=== PATIENT | female | born 1995 | race Caucasian/White ===

== ENCOUNTER → 2020-10-14 13:08 | Outpatient (CLI) | payer OTHER, SELFPAY ==
--- NOTE | ~2020-10-14 | US_ITS ---
EXAMINATION: US OB transvaginal DATE: 10/14/2020 13:48 INDICATION: Gestational dates. Hypothyroidism. Hyperemesis. TECHNIQUE: Real-time transvaginal obstetric ultrasound. FINDINGS: No prior studies for comparison. The uterus measures 12.2 x 6.9 x 6.8 cm. There is an intrauterine gestational sac, with pole id entified. The crown-rump length measured 2.23 cm corresponding to 9 week 0 day gestation. hear t rate is 169 bpm. There are 2 separate areas of subchorionic hemorrhage measuring 1.6 x 1.5 x 1 cm a nd 1.3 x 1.3 x 1 cm respectively. IMPRESSION: 1. SL IUP with an EGA of 9 weeks, 0 days (EDC by current ultrasound of 05/19/2021). 2: Subchorionic hemorrhages. Reviewed, dictated and finalized at location A. PROCESSING OPERATOR IMPRESSION: 1. SL IUP with an EGA of 9 weeks, 0 days (EDC by current ultrasound of ). 2: Subchorionic hemorrhages.
== END ==
PROVIDERS: Visit Provider Obstetrics & Gynecology
DX: Z36.87 Encounter for antenatal screening for uncertain dates (principal); Z3A.09 9 weeks gestation of pregnancy; O36.8911 Maternal care for other specified fetal problems, first trimester, fetus 1
CPT/HCPCS: 76817

== ENCOUNTER → 2020-10-29 09:48 | Outpatient (CLI) | payer OTHER, SELFPAY ==
--- NOTE | ~2020-10-29 | US_ITS ---
EXAMINATION: US OB limited EXAM DATE: 10/29/2020 10:19 INDICATION: Subchorionic hematoma 1st trimester. TECHNIQUE: Pelvic obstetrical transabdominal sonogram was performed by a technologist. There are mu ltiple grayscale and Doppler images available for interpretation. Comparison is made to prior examina tion from 10/14/2020. FINDINGS: Uterus measures 12.5 x 7.4 x 9.0 cm. There is intrauterine gestation again identified, hear t rate confirmed at 150 bpm. Previously seen subchorionic hypoechogenic region is no longer identifie d. The ovaries were not specifically identified. IMPRESSION: Live intrauterine gestation without evidence of subchorionic hematoma. Reviewed, dictated and finalized at location A. RAPHY TEACHER IMPRESSION: Live intrauterine gestation without evidence of subchorionic hemat julio cesar.
== END ==
PROVIDERS: Visit Provider Obstetrics & Gynecology
DX: O36.8910 Maternal care for other specified fetal problems, first trimester, not applicable or unspecified (principal); Z3A.00 Weeks of gestation of pregnancy not specified
CPT/HCPCS: 76815

== ENCOUNTER → 2020-12-20 10:24 | Outpatient (CLI) | payer OTHER, SELFPAY ==
--- NOTE | ~2020-12-20 | US_ITS ---
EXAMINATION: US OB >= 14 weeks Fetus DATE: 12/20/2020 10:59 INDICATION: Pelvic pain TECHNIQUE: Multiple obstetric sonographic images performed. FINDINGS: survey There is a single living fetus in vertex presentation. The placenta is anterior without placenta pre via. Placental margin is 2.5 cm to the cervix. Amniotic fluid volume is normal. cardiac activity and movement is noted with a heart rate of 143 beats per minute. The following anatomy was identified as normal: 4 chamber heart (left ventricular outflow tract not well visualized) 3 vessel cord cord insertion kidneys urinary bladder stomach spine diaphragm ventricles cisterna magna cerebellum The following biometric data were obtained: BPD: 42mm corresponds to gestational age 18 weeks 5 days. Head circumference: 162 mm corresponds to gestational age 19 weeks 0 days. Abdominal circumference: 134 mm corresponds to gestational age 18 weeks 6 days. Femur length: 27 mm corresponds to gestational age 18 weeks 0 days. Head circumference to abdominal circumference ratio: 1.21 (normal range for expected gestational age is 1.09-1.26). Estimated weight: 246 grams +/- 37 grams using Hadlock method. IMPRESSION: 1: Single living intrauterine with an estimated gestational age of 18weeks 4days by initial ultrasound measurements, with an EDC of 05/19/2021 in breech presentation. 2. Normal survey. Limited visualization of the left ventricular outflow tract. Recommend atten tion to this structure on subsequent study. 3: Low-lying anterior placenta measuring 2.5 cm to the cervix. Reviewed, dictated and finalized at location A. IMPRESSION: 1: Single living intrauterine with an estimated gestational age of 18 weeks 4days by initial ultrasound measurements, with an EDC of 05/19/2021 in karen ech presentation. 2. Normal survey. Limited visualization of the left ventricular outflow tract. Recommend attention to this structure on subsequent study. 3: Low-lying anterior placenta measuring 2.5 cm to the cervix.
== END ==
PROVIDERS: Visit Provider Obstetrics & Gynecology
DX: Z36.9 Encounter for antenatal screening, unspecified (principal); O44.42 Low lying placenta NOS or without hemorrhage, second trimester; Z3A.18 18 weeks gestation of pregnancy
CPT/HCPCS: 76805

== ENCOUNTER → 2021-01-24 10:25 | Outpatient (CLI) | payer OTHER, SELFPAY ==
--- NOTE | ~2021-01-24 | US_ITS ---
EXAMINATION: US OB follow up DATE: 01/24/2021 10:49 INDICATION: Follow-up incomplete prior anatomic survey. TECHNIQUE: Real-time ultrasound of the pelvis was performed. The interpreting radiologist was not pre sent for the study. COMPARISON: 12/20/2020 FINDINGS: There is a single living fetus in vertex presentation. The placenta is anterior. heart rate is 149 beats per minute (bpm). The amniotic fluid volume is subjectively normal. The heart is nor mal with normal four-chamber heart, left ventricular outflow and right ventricular outflow views. IMPRESSION: 1. Single living fetus in vertex presentation with heart rate of 149 bpm. 2. Normal heart views. Reviewed, dictated and finalized at location A.
== END ==
PROVIDERS: Visit Provider Obstetrics & Gynecology
DX: Z36.89 Encounter for other specified antenatal screening (principal)
CPT/HCPCS: 76816

== ENCOUNTER → 2021-03-18 12:51 | Outpatient (CLI) | payer OTHER, SELFPAY ==
--- NOTE | ~2021-03-18 | US_ITS ---
EXAMINATION: US OB follow up EXAM DATE: 03/18/2021 13:13 INDICATION: Size greater than dates. 3rd trimester. TECHNIQUE: Pelvic obstetrical transabdominal sonogram was performed by a technologist. There are mu ltiple grayscale and Doppler images available for interpretation. Comparison is made to prior examina tion from 01/24/2021. FINDINGS: There is a single fetus identified in vertex presentation with a heart rate of 129 beats pe r minute. The placenta is located in the anterior position. There is no sonographic evidence of retr oplacental hemorrhage identified. The amniotic fluid index is 16.1 centimeters, which is normal. BIOMETRIC DATA: Biparietal diameter (BPD): 8.5 cm ----------------> 34 weeks 1 day. Head circumference (HC): 30.0 cm ----------------> 33 weeks 2 days. Abdominal circumference (AC): 28.7 cm ----------> 32 weeks 5 days. Femur length (FL): 5.7 cm --------------------------> 30 weeks 0 days. These measurements are discordant, with a FL/AC and FL/BPD 2 standard deviations below expected. HC/ AC ratio is 1.05 (The 5th -- 95th percentile range is 0.96-1.12. Estimated weight is 1898 g +/- 285 g. This is the 70th percentile when the currently reported clinical gestation age 31 weeks 1 day, clinical estimated date of delivery (SOLO-OPE) 05/19/2021 is use d. estimated gestational age based on measurements from this exam is 32 weeks 4 days, with an e stimated date of delivery (SOLO-AUA) 05/09. IMPRESSION: 1. Single fetus in vertex presentation with heart rate 129 beats per minute. 2. Estimated weight of 1898 grams, 70th percentile using the currently reported clinical gesta tion age of 31 weeks 1 day, SOLO(OPE) 05/19/2021. 3. Discordant FL/BPD and FL/HC ratios. Reviewed, dictated and finalized at location A. IMPRESSION: 1. Single fetus in vertex presentation with heart rate 129 beats per minute. 2. Estimated weight of 1898 grams, 70th percentile using the currently r eported clinical gestation age of 31 weeks 1 day, SOLO(OPE) 05/19/2021. 3. Discordant FL/BPD and FL/HC ratios.
== END ==
PROVIDERS: Visit Provider Obstetrics & Gynecology Gynecology
DX: O36.63X0 Maternal care for excessive fetal growth, third trimester, not applicable or unspecified (principal); Z3A.31 31 weeks gestation of pregnancy
CPT/HCPCS: 76816

== ENCOUNTER 2021-04-27 01:32 | Observation (INO) | payer OTHER, SELFPAY ==
--- NOTE | 2021-04-27 01:32 | LDADM ---
This patient, Sol Ferguson, was admitted to Labor/Delivery/Recovery 106 on 04/27/21 at 01:32. Plans for labor, pain management and were discussed with patient. Patient/family oriented to hospital policies and general routines including ID bracelet, bed and alarms, visiting hours, pain management, procedures, bathroom and other care routines, personal items, smoking policy, room service/diet and guest tray routines, infant security routines, and visiting hours. Patient/Family are encouraged to report perceived risks to care and to ask questions if they do not understand what they are told or what they should do. See OBIX for further documentation.
[2021-04-27 01:44] VITALS: BP 116/76; PULSE 91
[2021-04-27 02:01] VITALS: BP 109/70; PULSE 84
[2021-04-27 02:15] VITALS: BMI 31.1
[2021-04-27 02:31] VITALS: BP 107/73; PULSE 89
[2021-04-27 02:41] LABS: Basophils Absolute Auto 0.1 K/mm3 (0.0-0.1); Basophils Percent Auto 0.5 % (0.2-1.2); Eosinophils Absolute Auto 0.1 K/mm3 (0-0.3); Eosinophils Percent Auto 0.5 % (0-4.4); Hematocrit 34.8 % (37.0-47.0); Hemoglobin 11.2 g/dL (12.0-15.0); Immature Granulocyte Absolute 0.26 K/mm3 (0.00-0.031); Immature Granulocyte Percent A 2.4 % (0-0.5); Lymphocytes Absolute Auto 1.92 K/mm3 (0.9-3.2); Lymphocytes Percent Auto 17.5 % (18.3-44.2); Mean Corpuscular HGB Conc 32.2 g/dl (32-36); Mean Corpuscular Hemoglobin 28.7 pg (26-34); Mean Corpuscular Volume 89.2 fl (80-100); Mean Platelet Volume 10.3 fl (7.4-10.4); Monocytes Absolute Auto 0.8 K/mm3 (0.1-0.6); Monocytes Percent Auto 7.1 % (2.6-8.5); Neutrophils Absolute Auto 7.9 K/mm3 (1.3-6.7); Platelet Count Result 138 k/mm3 (150-375); Red Cell Distribution Width 14.4 % (11.5-14.5)
[2021-04-27] MEDS: LACTATED RINGERS 1,000 ML 125 ML IV CONT (02:53)
[2021-04-27] MEDS: AMPICILLIN 2 GM/NS 100 ML 2 GM/100 ML BAG IVPB (02:54)
[2021-04-27 03:09] VITALS: RESP 18; TEMP 36.5
[2021-04-27 04:30] VITALS: BP 104/72; PULSE 80; RESP 16; TEMP 36.6
[2021-04-27 05:54] VITALS: BP 103/65; PULSE 81
[2021-04-28 09:57] LABS: Rapid Plasma Reagin Non-Reactive (NonReactive)
--- NOTE | 2021-05-08 07:33 | P.PNOB_ITS ---
OB - Triage/Final Diagnosis Visit Information Reason for evaluation: threatened labor Comments/Additional reasons for admission: I have assessed the risk for this patient, Sol Ferguson, and determined that she would benefit from observation care. Evaluation Laboratory results: Laboratory Tests 04/27/21 04/27/21 04/27/21 02:28 02:28 02:28 WBC 11.0 H RBC 3.90 L Hgb 11.2 L Hct 34.8 L MCV 89.2 MCH 28.7 MCHC 32.2 RDW 14.4 Plt Count 138 L MPV 10.3 Immature Gran % (Auto) 2.4 H Neut % (Auto) 72.0 Lymph % (Auto) 17.5 L [place] % (Auto) 7.1 Eos % (Auto) 0.5 Baso % (Auto) 0.5 Lymph # (Auto) 1.92 [place] # (Auto) 0.8 H Eos # (Auto) 0.1 Baso # (Auto) 0.1 Abs Immat Gran (auto) 0.26 H Absolute Neuts (auto) 7.9 H Absolute Nucleated RBC 0.0 Nucleated RBC % 0.0 RPR Non-reactive Blood Type A Positive Antibody Screen Negative
== END 2021-04-27 07:45 | disposition home or self-care (01) ==
PROVIDERS: Admitting Provider Obstetrics & Gynecology Gynecology; PCP Internal Medicine; Visit Provider Obstetrics & Gynecology Gynecology
DX: O47.03 False labor before 37 completed weeks of gestation, third trimester (principal); Z3A.36 36 weeks gestation of pregnancy
CPT/HCPCS: 36415; 85025; 86592; 86850; 86900; 86901; 96365; G0378; G0379; J0290; J7120

== ENCOUNTER 2021-05-12 06:46 | Inpatient (IN) | payer OTHER, SELFPAY ==
[2021-05-12] VITALS (82 sets, daily range): BP systolic 86–125; BP diastolic 60–91; PULSE 61–103; RESP 16–18; TEMP 35.9–36.9; O2SAT 97–100; BMI 31.7
[2021-05-12 07:31] LABS: Basophils Absolute Auto 0.1 K/mm3 (0.0-0.1); Basophils Percent Auto 0.6 % (0.2-1.2); Eosinophils Absolute Auto 0.1 K/mm3 (0-0.3); Eosinophils Percent Auto 0.6 % (0-4.4); Hematocrit 31.7 % (37.0-47.0); Immature Granulocyte Absolute 0.22 K/mm3 (0.00-0.031); Immature Granulocyte Percent A 2.7 % (0-0.5); Lymphocytes Percent Auto 17.3 % (18.3-44.2); Mean Corpuscular HGB Conc 31.5 g/dl (32-36); Mean Corpuscular Hemoglobin 27.9 pg (26-34); Mean Corpuscular Volume 88.5 fl (80-100); Mean Platelet Volume 10.2 fl (7.4-10.4); Monocytes Absolute Auto 0.6 K/mm3 (0.1-0.6); Monocytes Percent Auto 7.3 % (2.6-8.5); Neutrophils Absolute Auto 5.8 K/mm3 (1.3-6.7); Neutrophils Percent Auto 71.5 % (45.5-73.1); Platelet Count Result 145 k/mm3 (150-375); Red Blood Count 3.58 M/mm3 (4.2-5.4); Red Cell Distribution Width 13.9 % (11.5-14.5); White Blood Count 8.1 K/mm3 (4.5-10.0)
[2021-05-12] MEDS: LACTATED RINGERS 1,000 ML 125 ML IV CONT ×2 (07:35→10:06)
[2021-05-12] MEDS: OXYTOCIN 30 UNITS/NS 500 ML 30 UNITS/500 ML BAG IV CONT (07:37)
--- NOTE | 2021-05-12 08:01 | LDADM ---
This patient, Sol Ferguson, was admitted to Labor/Delivery/Recovery 108 on 05/12/21 at 06:46. Plans for labor, pain management and were discussed with patient. Patient/family oriented to hospital policies and general routines including ID bracelet, bed and alarms, visiting hours, pain management, procedures, bathroom and other care routines, personal items, smoking policy, room service/diet and guest tray routines, infant security routines, and visiting hours. Patient/Family are encouraged to report perceived risks to care and to ask questions if they do not understand what they are told or what they should do. See OBIX for further documentation.
--- NOTE | 2021-05-12 08:09 | WPDOBADMIT ---
Obstetrics - Admit Note Admission Note: record reviewed. No pertinent additions to the history and/or any subsequent changes in the physical findings that are not consistent with the expected course of the were found. Additions to the history and/or subsequent changes in the physical findings follow. Here for MIL. 4/80/-2 AROM with clear fluid. FHTs reactive
--- NOTE | 2021-05-12 08:46 | P.PNAN_ITS ---
Anes - Eval Pre Procedure Date/Time: 05/12/21 08:46 Pre Op Diagnosis: Induction of Labor Patient Data Age: 25 Gender: F Height: 1.7 m Weight: 92 kg Last Vital Signs Temp 36.9 C 05/12/21 08:06 Pulse 73 05/12/21 08:45 BP 110/76 05/12/21 08:45 Allergies Allergy/AdvReac Type Severity Reaction Status Date / Time iodine Allergy Rash Verified 04/22/21 15:37 Home Medications Medication Instructions Recorded Confirmed Type levothyroxine 275 mcg PO DAILY 04/22/21 04/22/21 History omeprazole 20 mg PO DAILY 04/22/21 04/22/21 History prenat.vits,estuardo,tum-[id number] 1 tablet PO DAILY 04/22/21 04/22/21 History sertraline [Zoloft] 100 mg PO DAILY 04/22/21 04/22/21 History Laboratory Tests 05/12/21 05/12/21 07:20 07:20 WBC 8.1 K/mm3 K/mm3 (4.5-10.0) RBC 3.58 M/mm3 L M/mm3 (4.2-5.4) Hgb 10.0 g/dL L g/dL (12.0-15.0) Hct 31.7 % L % (37.0-47.0) MCV 88.5 fl fl (80-100) MCH 27.9 pg pg (26-34) MCHC 31.5 g/dl L g/dl (32-36) RDW 13.9 % % (11.5-14.5) Plt Count 145 k/mm3 L k/mm3 (150-375) MPV 10.2 fl fl (7.4-10.4) Immature Gran % (Auto) 2.7 % H % (0-0.5) Neut % (Auto) 71.5 % % (45.5-73.1) Lymph % (Auto) 17.3 % L % (18.3-44.2) [place] % (Auto) 7.3 % % (2.6-8.5) Eos % (Auto) 0.6 % % (0-4.4) Baso % (Auto) 0.6 % % (0.2-1.2) Lymph # (Auto) 1.40 K/mm3 K/mm3 (0.9-3.2) [place] # (Auto) 0.6 K/mm3 K/mm3 (0.1-0.6) Eos # (Auto) 0.1 K/mm3 K/mm3 (0-0.3) Baso # (Auto) 0.1 K/mm3 K/mm3 (0.0-0.1) Abs Immat Gran (auto) 0.22 K/mm3 H K/mm3 (0.00-0.031) Absolute Neuts (auto) 5.8 K/mm3 K/mm3 (1.3-6.7) Absolute Nucleated RBC 0.0 K/mm3 K/mm3 (0.0-0.012) Nucleated RBC % 0.0 % % (0.0-0.2) RPR Pending Patient hx anesthesia problems: none Family hx anesthesia problems: none [facility] Family History Family History Father Hypertension Sibling Hypothyroidism Diabetes mellitus Grandparent Type 2 diabetes mellitus Social History Social History Smoking status: Never smoker Second hand tobacco smoke exposure: No Substance use: never Spiritual care concerns: No Exam Day of Procedure 05/12/21 08:46 Patient weight: normal Heart: regular rate and rhythm Lungs: normal air movement Airway: Mallampati scale class II Neurological: alert and oriented
[2021-05-12] MEDS: LACTATED RINGERS 1,000 ML 999 ML IV CONT (08:57)
--- NOTE | 2021-05-12 11:32 | PM.OBPRVD ---
OB - Delivery Note Procedure Delivery date: 05/12/21 Procedure: Procedures Operation Date: 05/13/21 12:00 <No data on this case meets the specified criteria> events: Labor Induction Induction method: AROM and per pitocin protocol Delivery monitor: external FHT and external uterine Route of delivery: Laceration Description: None Specimen: No Quantitative Blood Loss (ml): 50 Anesthesia type: Epidural Disposition: floor Baby Date of : 05/12/21 Weeks of gestation at delivery: 39 gender: Male presentation: vertex position: Right Occiput Anterior Placenta delivery description: Spontaneous cord vessel description: 3 Vessels score one minute: 9 score five minutes: 9
--- NOTE | 2021-05-12 11:33 | P.DS_ITS ---
DS: Admitting Diagnosis Discharge Date 05/14/21 Admitting Diagnosis induction of labor at 39 weeks DS: Discharge Diagnosis Discharge Diagnosis (1) (normal spontaneous vaginal delivery): Code(s): O80 - Encounter for full-term uncomplicated delivery Status: Acute (2) Encounter for sterilization: Code(s): Z30.2 - Encounter for sterilization Status: Acute OB - DS: Summary OB Procedures : Ultrasound OB Procedures Intrapartum: Spontaneous Vag Delivery OB Procedures: : P.P. tubal ligation Peripartum Data Infant Delivery Method: Natural Vaginal Laceration Description: None Procedures: Procedures Operation Date: 05/13/21 12:00 <No data on this case meets the specified criteria> complications: none Status at Discharge Functional status at discharge: independent ambulation Overall status at discharge: patient is progressing back to baseline Time Spent with Patient Time attestation: Total time spent providing and/or coordinating discharge services: Time spent: Less than 30 minutes DS: Data Data Completed and Pending Labs on day of discharge: Labs from last 24 hours 05/12/21 05/12/21 05/12/21 07:20 07:20 07:20 WBC 8.1 RBC 3.58 L Hgb 10.0 L Hct 31.7 L MCV 88.5 MCH 27.9 MCHC 31.5 L RDW 13.9 Plt Count 145 L MPV 10.2 Immature Gran % (Auto) 2.7 H Neut % (Auto) 71.5 Lymph % (Auto) 17.3 L [place] % (Auto) 7.3 Eos % (Auto) 0.6 Baso % (Auto) 0.6 Lymph # (Auto) 1.40 [place] # (Auto) 0.6 Eos # (Auto) 0.1 Baso # (Auto) 0.1 Abs Immat Gran (auto) 0.22 H Absolute Neuts (auto) 5.8 Absolute Nucleated RBC 0.0 Nucleated RBC % 0.0 RPR Pending Blood Type A Positive Antibody Screen Negative Discharge Plan Discharge Attending physician on discharge: Amelie Flores Discharging Clinician: Amelie Flores Anticipated Discharge Date/Time: 05/14/21 11:34 Patient Disposition: Home, Self-Care Activity: may shower, may drive after 2 weeks and pelvic rest Diet: regular Wound Care Instructions: incision open to air Patient Instructions: Antibiotic Form Stand Alone Forms: General Discharge Information Follow-up/Referrals: Henry Singer MD [Physician] - 1 Week ( and 6 weeks) Discharge Medications: New hydrocodone-acetaminophen 5-325 mg tablet 1 tablet PO Q4H PRN (Reason: pain) Qty: 20 RF: 0 Continued sertraline [Zoloft] 100 mg Tablet 100 mg PO DAILY RF: 0 omeprazole 20 mg Capsule,Delayed Release(Dr/Ec) 20 mg PO DAILY RF: 0 levothyroxine 200 mcg Tablet 225 mcg PO DAILY RF: 0 prenat.vits,estuardo,nij-wpua-ytlyq Tablet 1 tablet PO DAILY RF: 0 Date of admission: 05/12/21 06:46 Primary Care Provider: Donnie,Rachana Stephenson Admitting Provider: Henry Singer Attending physician on admission: Henry Singer Condition: Stable
[2021-05-12] MEDS: OXYTOCIN 30 UNITS/NS 500 ML 30 UNITS/500 ML BAG 125 UNITS IV CONT (12:04)
[2021-05-12] MEDS: IBUPROFEN 600 MG TABLET PO ×2 (13:32→19:10)
--- NOTE | 2021-05-12 14:35 | PC.NURSE ---
Patient transferred to post room #291 via wheelchair. Support person present. Oriented to unit, room, information board, rooming in, admission packet and security measures. Patient verbalizes understanding.
[2021-05-12] MEDS: BENZOCAINE 20% AER SPR (*SP) 56 GM CAN 1 SPRAY TOPICAL (18:02)
[2021-05-12] MEDS: WITCH HAZEL 40 PADS 1 PAD TOPICAL (18:02)
[2021-05-12] MEDS: DIBUCAINE 1% OINTMENT 30 GM TUBE 1 APPLIC TOPICAL (18:02)
[2021-05-13] VITALS (11 sets, daily range): BP systolic 100–118; BP diastolic 64–81; PULSE 67–95; RESP 12–20; TEMP 36.2–36.6; O2SAT 97–100
[2021-05-13] MEDS: IBUPROFEN 600 MG TABLET PO ×2 (04:44→16:03)
[2021-05-13 05:19] LABS: Hemoglobin 9.8 g/dL (12.0-15.0)
--- NOTE | 2021-05-13 07:47 | WPDHPUPDATE1 ---
History and Physical Update Update Date/Time: 05/13/21 07:47 History and Physical has been reviewed, including an updated exam of the patient. There are NO changes in the patient's condition. Risks, benefits, and alternatives have been discussed and questions answered. Patient agrees to proceed with procedure.
--- NOTE | 2021-05-13 07:47 | PM.IMHP ---
H&P: HPI History of Present Illness Date/Time: 05/13/21 07:47 25 yo G4 now P4 requesting permanent sterilization with pp tubal ligation. Patient is aware this is a permanent and irreversible sterilizing procedure. Risks of infection, bleeding, injury to internal organs, and failure with increased ectopic reviewed. Agrees to proceed. Chief Complaint: requests sterilization Review of Systems Review of Systems: cramping PMFSH Past Medical History Medical History (Updated 05/13/21 @ 07:50 by Amelie Flores MD) Depression Hypothyroid Surgical History Surgical History (Updated 05/13/21 @ 07:50 by Amelie Flores MD) History of umbilical hernia repair Family History Family History Father Hypertension Sibling Hypothyroidism Diabetes mellitus Grandparent Type 2 diabetes mellitus Social History Social History Smoking status: Never smoker Second hand tobacco smoke exposure: No Substance use: never Spiritual care concerns: No Meds Home Medications and Allergies Home Medications Medication Instructions Recorded Confirmed Type levothyroxine 275 mcg PO DAILY 04/22/21 04/22/21 History omeprazole 20 mg PO DAILY 04/22/21 04/22/21 History prenat.vits,estuardo,okl-muyx-ymanl 1 tablet PO DAILY 04/22/21 04/22/21 History sertraline [Zoloft] 100 mg PO DAILY 04/22/21 04/22/21 History Allergies Allergy/AdvReac Type Severity Reaction Status Date / Time iodine Allergy Rash Verified 04/22/21 15:37 Vital Signs Vital Signs - 24 hr 05/12/21 08:00 05/12/21 08:06 05/12/21 08:15 Temperature 98.5 F Pulse Rate 81 86 Respiratory Rate Blood Pressure 111/74 116/73 Pulse Oximetry 05/12/21 08:30 05/12/21 08:45 05/12/21 08:48 Temperature Pulse Rate 76 73 Respiratory Rate Blood Pressure 106/74 110/76 Pulse Oximetry 97 05/12/21 08:53 05/12/21 08:58 05/12/21 09:00 Temperature Pulse Rate 71 71 Respiratory Rate Blood Pressure 115/78 119/91 H Pulse Oximetry 99 100 05/12/21 09:03 05/12/21 09:06 05/12/21 09:08 Temperature Pulse Rate 79 76 Respiratory Rate Blood Pressure 119/86 125/81 Pulse Oximetry 100 100 05/12/21 09:09 05/12/21 09:11 05/12/21 09:12 Temperature Pulse Rate 81 78 Respiratory Rate Blood Pressure 120/77 118/70 Pulse Oximetry 100 05/12/21 09:15 05/12/21 09:16 05/12/21 09:18 Temperature Pulse Rate 71 77 Respiratory Rate Blood Pressure 113/70 110/71 Pulse Oximetry 100 05/12/21 09:21 05/12/21 09:24 05/12/21 09:26 Temperature Pulse Rate 74 75 Respiratory Rate Blood Pressure 117/68 110/69 Pulse Oximetry 99 99 05/12/21 09:27 05/12/21 09:30 05/12/21 09:31 Temperature Pulse Rate 73 72 Respiratory Rate Blood Pressure 111/64 107/67 Pulse Oximetry 97 05/12/21 09:33 05/12/21 09:36 05/12/21 09:39 Temperature Pulse Rate 73 73 72 Respiratory Rate Blood Pressure 109/68 107/62 107/68 Pulse Oximetry 100 05/12/21 09:41 05/12/21 09:42 05/12/21 09:45 Temperature Pulse Rate 74 65 Respiratory Rate Blood Pressure 105/78 107/63 Pulse Oximetry 100 05/12/21 09:46 05/12/21 09:48 05/12/21 09:51 Temperature Pulse Rate 70 69 Respiratory Rate Blood Pressure 109/66 107/68 Pulse Oximetry 100 100 05/12/21 09:54 05/12/21 09:56 05/12/21 09:57 Temperature Pulse Rate 72 74 Respiratory Rate Blood Pressure 106/68 109/70 Pulse Oximetry 100 05/12/21 10:00 05/12/21 10:01 05/12/21 10:03 Temperature 96.9 F L Pulse Rate 81 71 Respiratory Rate Blood Pressure 111/62 108/67 Pulse Oximetry 100 05/12/21 10:06 05/12/21 10:09 05/12/21 10:11 Temperature Pulse Rate 67 70 Respiratory Rate Blood Pressure 108/70 107/72 Pulse Oximetry 100 100 05/12/21 10:12 05/12/21 10:15 05/12/21 10:16 Temperature
[2021-05-13 09:46] LABS: Rapid Plasma Reagin Non-Reactive (NonReactive)
--- NOTE | 2021-05-13 10:42 | WPDANESEPPF ---
Anes - Initial Pre Proc Eval Procedure: Operation Date: 05/13/21 12:00 Proposed Procedures p Post- Tubal Ligation - Amelie Flores MD Date/Time: 05/13/21 10:42 Surgeon: Henry Singer MD Pre Op Diagnosis: Induction of Labor Patient Data Age: 25 Gender: F Height: 1.7 m Weight: 92 kg Last Vital Signs Temp 36.6 C 05/13/21 08:15 Pulse 69 05/13/21 08:15 Resp 18 05/13/21 08:15 BP 108/75 05/13/21 08:15 Pulse Ox 98 05/13/21 08:15 Allergies Allergy/AdvReac Type Severity Reaction Status Date / Time iodine Allergy Rash Verified 05/13/21 11:01 Home Medications Medication Instructions Recorded Confirmed Type levothyroxine 225 mcg PO DAILY 04/22/21 05/13/21 History omeprazole 20 mg PO DAILY 04/22/21 04/22/21 History prenat.vits,estuardo,pek-ftpp-mhhsr 1 tablet PO DAILY 04/22/21 04/22/21 History sertraline [Zoloft] 100 mg PO DAILY 04/22/21 05/13/21 History hydrocodone-acetaminophen 1 tablet PO Q4H PRN #20 tablet 05/13/21 Rx Laboratory Tests 05/12/21 05/13/21 07:20 04:39 Hgb 9.8 g/dL L g/dL (12.0-15.0) Hct 32.0 % L % (37.0-47.0) RPR Non-reactive (NonReactive) Patient hx anesthesia problems: none Family hx anesthesia problems: none PMFSH Past Medical History Medical History (Updated 05/13/21 @ 07:52 by Amelie Flores MD) Depression Hypothyroid Surgical History Surgical History (Updated 05/13/21 @ 07:50 by Amelie Flores MD) History of umbilical hernia repair Family History Family History Father Hypertension Sibling Hypothyroidism Diabetes mellitus Grandparent Type 2 diabetes mellitus Social History Social History Smoking status: Never smoker Second hand tobacco smoke exposure: No Substance use: never Spiritual care concerns: No Anes - Eval Final PreProcedure Day of Procedure 05/13/21 10:42 Patient weight: overweight Heart: regular rate and rhythm Lungs: clear to auscultation and normal air movement Airway: Mallampati scale class II Neurological: alert and oriented Last oral intake: >/= 8 hours ASA classification: II Emergent: no Anesthetic plan: proceed Anesthesia type and monitoring: general GIVS and ETT Informed Consent: The patient's anesthetic plan and its attendant risks and benefits were discussed with the patient/family/POA. Questions were solicited and answers provided to the satisfaction of the patient/family/POA.
[2021-05-13] MEDS: LACTATED RINGERS 1,000 ML 30 ML IV CONT ×2 (11:00→12:50)
--- NOTE | 2021-05-13 11:01 | WPDANLDPN2 ---
Anes-Prog Note L&D Date/Time: 05/13/21 11:01 Comfortable throughout: labor and delivery Neuraxial method: epidural Epidural/Spinal procedure site: clean & non-tender (epidural in tact for surgery today.) Neuro status: Neuro function grossly intact. Cardiovascular status: normal Respiratory status: normal Airway patency: baseline Mental status: baseline Post-Op hydration status: normal Vital Signs: Last Vital Signs Temp 36.6 C 05/13/21 08:15 Pulse 69 05/13/21 08:15 Resp 18 05/13/21 08:15 BP 108/75 05/13/21 08:15 Pulse Ox 98 05/13/21 08:15 Pain score (VAS): 0 Post-procedural complaints: none Patient feedback: Patient satisfied with anesthetic care.
--- NOTE | 2021-05-13 12:40 | W.PM.PROC2 ---
Procedure Note - Detailed Date of Procedure 05/13/21 Pre-op Diagnosis Requests sterilization Post-op Diagnosis same Procedure Performed tubal ligation Surgeon Amelie Flores MD Anesthesia epidural Findings Normal-appearing tubes and ovaries Description of Procedure The patient was taken to the operating room and placed under epidural anesthesia in the dorsal supine position. Once she was deemed adequate she was prepped and draped in the usual sterile fashion. A vertical skin incision was made below the umbilicus and carried down to the underlying layer of fascia. Fascial is grasped with the [place] and entered with Moss scissors. The incision is extended superiorly and inferiorly under direct visualization. The peritoneum was tented and entered with Metzenbaum scissors. The incision is extended with blunt traction. The left tube was identified grasped with a [place] and pulled through the incision the distal 2/3 of the tube are crossclamped with a Z clamp and excised. The pedicles tied off using 0 Vicryl. The identical procedure was performed on the opposite side. Good hemostasis is noted at both pedicles. The fascia is closed using 0 Vicryl in a running fashion. Bleeding vessels in the subcutaneous tissue are cauterized for hemostasis. Subcutaneous tissue was irrigated. Skin incision was closed using 4-0 Vicryl in a subcuticular fashion and Dermaflex was placed over the incision. Sponge, needle, and instrument count is correct per the OR staff. Estimated Blood Loss 5 Drains No Packing No Pathology yes (Bilateral fallopian tubes) Complications No immediate complications Condition stable Disposition PACU
[2021-05-13] MEDS: fentaNYL CITRATE INJ (*CRX) 100 MCG/2 ML VIAL 25 MCG IV PUSH ×3 (13:42→14:12)
[2021-05-13] MEDS: HYDROcodone/acetaminophen (*CRX) 5-325 MG TABLET 1 TAB PO ×2 (16:02→18:47)
[2021-05-13] MEDS: DOCUSATE SODIUM 100 MG CAPSULE PO (16:03)
[2021-05-13] MEDS: POLYSACCHARIDE IRON COMPLEX 150 MG CAPSULE PO (16:03)
[2021-05-16 08:36] VITALS: BP 116/78; PULSE 68; RESP 20; TEMP 37; O2SAT 100
== END 2021-05-13 19:00 | disposition home or self-care (01) | DRG 807 ==
LOC: ANHLDR 05-14 08:18 → ANHOB2 05-14 08:18
PROVIDERS: Admitting Provider Obstetrics & Gynecology Gynecology; PCP Internal Medicine; Visit Provider Obstetrics & Gynecology Gynecology
PROC: (CPT 58605; principal; 2021-05-13 12:00)
DX: O99.284 Endocrine, nutritional and metabolic diseases complicating childbirth (principal); Z37.0 Single live birth; Z3A.39 39 weeks gestation of pregnancy; Z30.2 Encounter for sterilization; O99.344 Other mental disorders complicating childbirth; F32.9 Major depressive disorder, single episode, unspecified; E03.9 Hypothyroidism, unspecified
CPT/HCPCS: 36415; 85014; 85018; 85025; 86592; 86850; 86900; 86901; 88302; A9270; J2250; J2590; J2704; J2795; J3010; J7120